=== PATIENT | male | born 1960 | race Caucasian/White ===

== ENCOUNTER 2018-12-07 14:50 | Emergency (ER) | payer SELFPAY ==
[2018-12-07] MEDS ORDERED: ASPIRIN 81 MG TABLET, CHEWABLE PO ONE (15:56)
--- NOTE | 2018-12-07 15:58 | ER Document Report ---
ED Medical Screen (RME) - General Chief Complaint: Chest Pain Stated Complaint: CHEST PAIN Time Seen by Provider: 12/07/18 15:56 Primary Care Provider: ERICKSON WERNER [Primary Care Provider] - Follow up as needed Notes: Patient is a 50-year-old male presents to the emergency department for intermittent left arm and chest pain starting on Tuesday after mowing the lawn. Patient states he also felt it when he exerted himself walking to the mailbox. Patient states he is consistently had this intermittent pain over the last couple of days which is why he inevitably presents to the emergency room. Patient's denying any history of hyperlipidemia, hypertension, diabetes. GENERAL: Alert, interacts well. No acute distress. LUNGS: Clear to auscultation bilaterally, no wheezes, rales, or rhonchi. No respiratory distress. I have greeted and performed a rapid initial assessment of this patient. A comprehensive ED assessment and evaluation of the patient, analysis of test results and completion of the medical decision making process will be conducted by additional ED providers. I have specifically instructed the patient or family members with the patient to immediately return to any nursing staff should anything change in the patient's condition or with their chief complaint. This medical record was dictated with voice recognizing software. There may be grammatical, syntax errors that are unintended. - Related Data Allergies/Adverse Reactions: No Known Allergies Allergy (Verified 12/07/18 14:59) Physical Exam - Vital signs Vitals: Temp Pulse Resp BP Pulse Ox 98.1 F 56 L 16 121/72 98 12/07/18 15:14 12/07/18 15:14 12/07/18 15:14 12/07/18 15:14 12/07/18 15:14 Course - Vital Signs Vital signs: Temp Pulse Resp BP Pulse Ox 98.1 F 56 L 16 121/72 98 12/07/18 15:14 12/07/18 15:14 12/07/18 15:14 12/07/18 15:14 12/07/18 15:14 Doctor's Discharge - Discharge Referrals: ERICKSON WERNER [Primary Care Provider] - Follow up as needed
[2018-12-07 16:39] LABS: ABSOLUTE BASOPHILS # (AUTO) 0.1 10^3/uL (0.0-0.2); ABSOLUTE EOSINOPHILS # (AUTO) 0.2 10^3/uL (0.0-0.6); ABSOLUTE LYMPHOCYTES (AUTO) 2.5 10^3/uL (0.5-4.7); ABSOLUTE MONOCYTES (AUTO) 0.5 10^3/uL (0.1-1.4); ABSOLUTE NEUT (AUTO) 3.4 10^3/uL (1.7-8.2); BASOPHILS % (AUTO) 1.3 % (0-2); EOSINOPHILS % (AUTO) 3.3 % (0-6); HEMOGLOBIN 15.4 g/dL (13.5-17.0); LYMPHOCYTES % (AUTO) 37.6 % (13-45); MEAN CORPUSCULAR HEMOGLOBIN 31.7 pg (27.0-33.4); MEAN CORPUSCULAR HGB CONC 34.3 g/dL (32.0-36.0); MEAN CORPUSCULAR VOLUME 92 fl (80-97); MONOCYTES % (AUTO) 7.4 % (3-13); PLATELET COUNT 206 10^3/uL (150-450); RED BLOOD COUNT 4.87 10^6/uL (4.35-5.55); RED CELL DISTRIBUTION WIDTH 13.4 % (11.5-14.0); SEGMENTED NEUTROPHILS % (AUTO) 50.4 % (42-78); TOTAL CELLS COUNTED % (AUTO) 100 %; WHITE BLOOD COUNT 6.8 10^3/uL (4.0-10.5)
--- NOTE | 2018-12-07 16:50 | RADIOLOGY REPORT (SQ) ---
EXAM DESCRIPTION: CHEST SINGLE VIEW COMPLETED DATE/TIME: 12/07/2018 4:41 pm REASON FOR STUDY: CP COMPARISON: None. EXAM PARAMETERS: NUMBER OF VIEWS: One view. TECHNIQUE: Single frontal radiographic view of the chest acquired. RADIATION DOSE: NA LIMITATIONS: None. FINDINGS: LUNGS AND PLEURA: No opacities, masses or pneumothorax. No pleural effusion. MEDIASTINUM AND HILAR STRUCTURES: No masses. Contour normal. HEART AND VASCULAR STRUCTURES: Heart normal in size. Normal vasculature. BONES: No acute findings. HARDWARE: None in the chest. OTHER: No other significant finding. IMPRESSION: NO ACUTE RADIOGRAPHIC FINDING IN THE CHEST. TECHNICAL DOCUMENTATION: JOB ID: [id number] Contractually- All Rights Reserved Reading location - IP/workstation name: [email or web address]
--- NOTE | 2018-12-07 19:07 | ER Document Report ---
ED General - General Chief Complaint: Chest Pain Stated Complaint: CHEST PAIN Time Seen by Provider: 12/07/18 15:56 Primary Care Provider: [facility] [NO LOCAL MD] - Follow up in 3-5 days LOCALERICKSON BUSTILLO [Primary Care Provider] - Follow up as needed Mode of Arrival: Ambulatory Information source: Patient, Friend, [facility] Records Notes: 58-year-old male with no reported past medical history presents with complaint of left arm pain and left-sided chest pain that occurred 5 days prior to arrival while mowing the lawn (102 degrees). Patient reports intermittent pain in his arm since that time. He has not experienced any arm or chest pain today. He does report associated shortness of breath but also reports a 14-nkee-vetp smoking history. Patient has had an associated dry cough but denies any fever, chills, nausea, vomiting, abdominal pain. Patient has not been to a primary care physician in over 20 years. He does smoke a pack per day but denies any alcohol or drug use. - HPI Onset: Last week Onset/Duration: Intermittent Quality of pain: Sharp Severity: None Pain Level: Denies Associated symptoms: Chest pain - Not experiencing chest pain currently, Nonproductive cough, Shortness of breath - Resolved. denies: Leg swelling, Nausea, Vomiting, Sweating, Weakness Exacerbated by: Walking, Coughing Relieved by: Denies Similar symptoms previously: No Recently seen / treated by doctor: No - Related Data Allergies/Adverse Reactions: No Known Allergies Allergy (Verified 12/07/18 14:59) Past Medical History - General Information source: Patient, Friend - Social History Smoking Status: Current Every Day Smoker Cigarette use (# per day): Yes - 20 Chew tobacco use (# tins/day): No Smoking Education Provided: Yes - Smoking cessation counseling was provided for 4 minutes at the bedside Frequency of alcohol use: None Drug Abuse: None Lives with: Friend Family History: Reviewed & Not Pertinent Patient has suicidal ideation: No Patient has homicidal ideation: No - Medical History Medical History: Negative Renal/ Medical History: Denies: Hx Peritoneal Dialysis Review of Systems - Review of Systems Notes: REVIEW OF SYSTEMS: CONSTITUTIONAL : Denies fever, chills, or sweats. Denies recent illness. Denies weight loss, recent hospitalizations. EENT: Denies visual changes, eye pain. Denies sore throat, oral lesions, difficulty swallowing. CARDIOVASCULAR: + chest pain. Denies palpitations. Denies lower extremity edema. RESPIRATORY: + cough. Denies shortness of breath, denies wheezing. GASTROINTESTINAL: Denies abdominal pain or distention. Denies nausea, vomit ing, or diarrhea. Denies blood in vomitus, stools, or per rectum. Denies black, tarry stools. Denies constipation. GENITOURINARY: Denies difficulty urinating, painful urination, frequency, bloo d in urine, testicular pain or penile discharge. MUSCULOSKELETAL: Denies back or neck pain or stiffness. Denies joint pain or swelling. SKIN: Denies rash, lesions or sores. HEMATOLOGIC : Denies easy bruising or bleeding. LYMPHATIC: Denies swollen glands. NEUROLOGICAL: Denies confusion or altered mental status. Denies loss of consciousness. Denies dizziness or lightheadedness. Denies headache. Denies weakness or paralysis. Denies problems difficulty with ambulation, slurred speech. Denies sensory loss, numbness, or tingling. Denies seizures. PSYCHIATRIC: Denies anxiety or stress. Denies depression, suicidal ideation, or Physical Exam - Vital signs Vitals: Temp Pulse Resp BP Pulse Ox 98.1 F 56 L 16 121/72 98 12/07/18 15:14 12/07/18 15:14 12/07/18 15:14 12/07/18 15:14 12/07/18 15:14 - Notes Notes: PHYSICAL EXAMINATION: GENERAL: Well-appearing, well-nourished and in no acute distress. HEAD: Atraumatic, normocephalic. EYES: Pupils equal round and reactive to light, extraocular movements intact, sclera anicteric, conjunctiva are normal. ENT: Nares patent, oropharynx clear without exudates. Moist mucous membranes. NECK: Normal range of motion, supple without lymphadenopathy LUNGS: Breath sounds clear to auscultation bilaterally and equal. No wheezes rales or rhonchi. HEART: Bradycardia, regular rhythm without murmurs ABDOMEN: Soft, nontender, nondistended abdomen. No guarding, no rebound. No masses appreciated. Musculoskeletal: Normal range of motion, no pitting or edema. No cyanosis. NEUROLOGICAL: Cranial nerves grossly intact. Normal speech, normal gait. Normal sensory, motor exams PSYCH: Normal mood, normal affect. SKIN: Warm, Dry, normal turgor, no rashes or lesions noted. Course - Re-evaluation Re-evalutation: 12/07/18 22:22 Laboratory 12/07/18 12/07/18 12/07/18 16:05 16:05 16:05 WBC 6.8 RBC 4.87 Hgb 15.4 Hct 45.0 MCV 92 MCH 31.7 MCHC 34.3 RDW 13.4 Plt Count 206 Seg Neutrophils % 50.4 Lymphocytes % 37.6 Monocytes % 7.4 Eosinophils % 3.3 Basophils % 1.3 Absolute Neutrophils 3.4 Absolute Lymphocytes 2.5 Absolute Monocytes 0.5 Absolute Eosinophils 0.2 Absolute Basophils 0.1 Sodium Cancelled Potassium Cancelled Chloride Cancelled Carbon Dioxide Cancelled Anion Gap Cancelled BUN Cancelled Creatinine Cancelled Est GFR ( Amer) Cancelled Est GFR (Non-Af Amer) Cancelled Glucose Cancelled Calcium Cancelled Total Bilirubin Cancelled Direct Bilirubin Cancelled Neonat Total Bilirubin Cancelled Neonat Direct Bilirubin Cancelled Neonat Indirect Bili Cancelled AST Cancelled ALT Cancelled Alkaline Phosphatase Cancelled Creatine Kinase Cancelled CK-MB (CK-2) Cancelled Troponin I Cancelled NT-Pro-B Natriuret Pep Total Protein Cancelled Albumin Cancelled 12/07/18 12/07/18 20:05 20:05 WBC RBC Hgb Hct MCV MCH MCHC RDW Plt Count Seg Neutrophils % Lymphocytes % Monocytes % Eosinophils % Basophils % Absolute Neutrophils Absolute Lymphocytes Absolute Monocytes Absolute Eosinophils Absolute Basophils Sodium 141.3 Potassium 4.9 Chloride 107 Carbon Dioxide 27 Anion Gap 7 BUN 15 Creatinine 1.06 Est GFR ( Amer) > 60 Est GFR (Non-Af Amer) > 60 Glucose 90 Calcium 10.0 Total Bilirubin 0.6 Direct Bilirubin 0.2 Neonat Total Bilirubin Not Reportable Neonat Direct Bilirubin Not Reportable Neonat Indirect Bili Not Reportable AST 22 ALT 26 Alkaline Phosphatase 99 Creatine Kinase 30 L CK-MB (CK-2) 0.63 Troponin I < 0.012 NT-Pro-B Natriuret Pep 35 Total Protein 7.4 Albumin 4.4 Chest X-Ray 12/07/18 15:56 IMPRESSION: NO ACUTE RADIOGRAPHIC FINDING IN THE CHEST. Temp Pulse Resp BP Pulse Ox 98.3 F 56 L 13 124/77 99 12/07/18 22:01 12/07/18 15:14 12/07/18 22:01 12/07/18 22:01 12/07/18 22:01 Presentation of chest pain in an otherwise well appearing patient. Low clinical suspicion for ACS given clinical history, exam, EKG without ST elevations or depressions, and negative initial troponin. HEART score less than or equal to 3. PE also seems unlikely given clinical history, absence of tachycardia or dyspnea. Patient is PERC criteria negative. CXR without evidence of pneumothorax or pneumonia. No widened mediastinum. Aortic dissection also seems unlikely given history, symmetric pulses, CXR, and vitals. HEART Score: History-1 ECG-0 Age-1 Risk Factors-1 Troponin-0 Total: 2 Chest pain in a patient without evidence of cardiac or other serious etiology on workup today. I discussed with patient that, based on their age, risk factors and emergency department testing today, the likelihood that their symptoms are related to a heart attack is very low (estimated risk of heart attack or over the next 30 days of less than 1%). The patient demonstrates decision making capacity and has verbalized an understanding of these risks to me. Based on this, the patient has chosen to follow-up as an outpatient. Usual chest pain return precautions reviewed. The patient states understanding and agreement with this plan. 12/07/18 22:22 - Vital Signs Vital signs: Temp Pulse Resp BP Pulse Ox 98.3 F 56 L 13 124/77 99 12/07/18 22:01 12/07/18 15:14 12/07/18 22:01 12/07/18 22:01 12/07/18 22:01 - Laboratory Result Diagrams: 12/07/18 16:05 12/07/18 20:05 Laboratory results interpreted by me: 12/07/18 20:05 Creatine Kinase 30 L - Diagnostic Test Radiology reviewed: Image reviewed, Reports reviewed - EKG Interpretation by Me EKG shows normal: Sinus rhythm Rate: Normal Rhythm: NSR When compared to previous EKG there are: Previous EKG unavailable Discharge - Discharge Clinical Impression: Left arm pain, Tobacco use Chest pain Qualifiers: Chest pain type: unspecified Qualified Code(s): R07.9 - Chest pain, unspecified Condition: Good Disposition: HOME, SELF-CARE Instructions: Chest Pain of Unclear Cause ([facility]) Additional Instructions: You were seen today for chest pain. The exact cause of your pain is unclear. However, based on your cardiac enzyme testing, chest x-ray, and EKG it does not appear that it is from an immediately life-threatening cause at this time. Although your testing here is normal is critical that you follow-up with your primary care physician for continued evaluation of this chest pain and possible stress testing. I recommended you see your physician within the next 24-48 hours to be evaluated for consideration of a stress test. Please return to emergency department immediately if you have worsening of your chest pain, short ness of breath, vomiting, become unable to exert yourself due to pain or difficulty breathing, you pass out, or have any pain that radiates into your arms, jaw, or back. Please also return if you have any additional symptoms that are concerning to you. Take 81mg aspirin daily Regarding Cigarette Smoking: There are multiple personal reasons to want to quit smoking These reasons can inspire you to stop smoking for good. Here are just a few reasons to quit today: Your Health and Appearance: Your chances of cancer, heart attack, stroke, cataracts and other diseases will go down. You will cough less and breath better. You will experience less respiratory infections. Your skin may look healthier, and you may look tounger. Your teeth and fingernails will not be stained. Your Loved Ones: You children will be healthier (second hand smoke is dangerous to babies during , infants and children). women who breath in secondhand smoke over time are more likely to have miscarriage, have young babies from Sudden Infant Syndrome, have babies that get sick more often. Children who breathe in secondhand smoke over time are more likely to have wheezing, more severe asthma attacks, pneumonia. There are resources to help you stop smokin. Call for Free Help: 9-693-Yrrh-Now (510 650-1781). or in irish: 5-540- SAY-YA (465-708-1437). 2. Sign up for free texts: SmokefreeTXT: [place] [address], answer a few questions and you'll start receiving messages. 3. Visit the CDC website: www.cdc.gov/tobacco/campaign/tips/quit-smoking/quitting-resources.html 4. Discusse further methods with your primary care physician. Forms: Smoking Cessation Education Referrals: ERICKSON WERNER [Primary Care Provider] - Follow up as needed [facility] [NO LOCAL MD] - Follow up in 3-5 days
[2018-12-07] MEDS ORDERED: IPRATROPIUM/ALBUTEROL 0.5-2.5 MG/3 ML AMPUL NEB ONE (19:31)
--- NOTE | 2018-12-07 20:33 | EKG REPORT ---
SEVERITY:- NORMAL ECG - SINUS RHYTHM : Confirmed by: Carola Pena 07-Dec-2018 20:32:32
[2018-12-07 20:38] LABS: ALANINE AMINOTRANSFERASE 26 U/L (21-72); ALBUMIN 4.4 g/dL (3.5-5.0); ALKALINE PHOSPHATASE 99 U/L (38-126); ANION GAP 7 (5-19); ASPARTATE AMINO TRANSFERASE 22 U/L (17-59); BILIRUBIN,DIRECT 0.2 mg/dL (0.0-0.4); BILIRUBIN,TOTAL 0.6 mg/dL (0.2-1.3); BLOOD UREA NITROGEN 15 mg/dL (7-20); CARBON DIOXIDE 27 mmol/L (22-30); CHLORIDE 107 mmol/L (98-107); CREATINE KINASE 30 U/L (55-170); GLUCOSE 90 mg/dL (75-110); POTASSIUM 4.9 mmol/L (3.6-5.0); TOTAL PROTEIN 7.4 g/dL (6.3-8.2)
[2018-12-07 20:50] LABS: CREATINE KINASE MB 0.63 ng/mL (<4.55); NT PRO BNP 35 pg/mL (5-900)
[2018-12-07 20:51] LABS: TROPONIN I < 0.012 ng/mL
[2018-12-07] MEDS ORDERED: MORPHINE SULFATE 10 MG/ML INJ IV ONE (21:07)
[2018-12-07] MEDS ORDERED: ONDANSETRON HCL INJ/PF 4 MG/2 ML SDV IV ONE (21:08)
[2018-12-07 22:06] VITALS: BP 124/77
--- NOTE | 2018-12-08 10:09 | EKG REPORT ---
SEVERITY:- NORMAL ECG - SINUS RHYTHM : Confirmed by: Carola Pena 08-Dec-2018 10:08:29
== END 2018-12-07 22:06 | disposition home or self-care (01) ==
LOC: ER 14:50
DX: R07.9 Chest pain, unspecified (principal); M79.602 Pain in left arm; R05 Cough; F17.210 Nicotine dependence, cigarettes, uncomplicated
CPT/HCPCS: 93005; 99406; 94640; 99285; 96374; 96375; 36415; 82553; 82550; 85025; 80053; 84484; 83880; 71045; 93010; J2270; J2405; J7620